=== PATIENT | male | born 1975 | race Caucasian/White ===

== ENCOUNTER 2017-03-03 18:09 | Inpatient (IN) | payer OTHER ==
[~2017-03-03] VITALS: Ht 182.9 cm; Wt 118.9 kg
[~2017-03-03 18:09] MED LIST: BACTRIM,SEPT1 TABLET PO; COLACE100 MG PO; IBUPROFEN200 M1 PO; LMX 430 GM TP; PERCOCET 5/31 TABLET PO
[2017-03-03 19:06] LABS: HEMATOCRIT 44.1 % (38.0-50.0); MCH 32.8 PG (29.0-34.0); MCHC 34.2 G/DL (30.0-36.0); MCV 95.7 FL (86-99); RBC DIS.WIDTH-CV 11.7 % (11.8-14.6); RBC DIS.WIDTH-SD 41.1 % (39-53); RED BLOOD COUNT 4.61 M/uL (4.00-5.50); WHITE BLOOD COUNT 9.2 K/uL (4.1-10.2)
[2017-03-03 19:11] LABS: ADD MIUA? NO; BILIRUBIN NEGATIVE; BLOOD NEGATIVE; COLOR COLORLESS ((YELLOW)); GLUCOSE (STRIP) NEGATIVE; KETONES NEGATIVE; LEUKOCYTES NEGATIVE; NITRITE NEGATIVE; PROTEIN (STRIP) NEGATIVE; SPECIFIC GRAVITY 1.002 (1.000-1.030); UCUL ADDED? NO; UROBILINOGEN 0.2 MG/DL (0.2-1.0)
[2017-03-03 19:16] LABS: CHLORIDE 104 mEq/L (99-109); POTASSIUM 4.2 mEq/L (3.7-5.4); SODIUM 138 mEq/L (136-147)
[2017-03-03 19:18] LABS: GLUCOSE 93 mg/dL (70-99)
[2017-03-03 19:20] LABS: ANION GAP 7 MEQ/L (2-14); TOTAL BILIRUBIN 0.4 mg/dL (0.0-1.0)
[2017-03-03 19:22] LABS: ALKALINE PHOSPHATASE 47 IU/L (3-129); GFR ESTIMATE (CALCULATED) > 59 mL/min/
[2017-03-03 19:23] LABS: UREA NITROGEN (BUN) 8 mg/dL (9-23)
[2017-03-03 19:45] LABS: MEAN PLAT.VOLUME 11.7 uM^3 (9.0-12.4); PLAT.SUFFICIENCY ADEQUATE; PLATELET COUNT 235 K/uL (156-360)
[2017-03-03] MEDS ORDERED: VITAMIN B-12500 MC5 SL (21:06)
[2017-03-03] MEDS ORDERED: ONCE DAILY1 EACH PO (21:06)
[2017-03-03] MEDS ORDERED: MILK THISTLE500 MG PO (21:07)
[2017-03-03] MEDS ORDERED: FISH OIL 1,0001 EAC7 PO (21:07)
[2017-03-04 03:45] VITALS: BP 117/70
[2017-03-04 08:19] VITALS: BP 125/63
[2017-03-04 10:20] LABS: HEMATOCRIT 41.7 % (38.0-50.0); MCH 31.9 PG (29.0-34.0); MCHC 32.9 G/DL (30.0-36.0); RBC DIS.WIDTH-CV 11.9 % (11.8-14.6); RBC DIS.WIDTH-SD 42.8 % (39-53); WHITE BLOOD COUNT 6.5 K/uL (4.1-10.2)
[2017-03-04 10:47] LABS: MEAN PLAT.VOLUME 12.1 uM^3 (9.0-12.4); PLAT.SUFFICIENCY ADEQUATE; PLATELET COUNT 205 K/uL (156-360)
[2017-03-04 15:23] VITALS: BP 132/76
[2017-03-04 19:15] VITALS: BP 119/81
[2017-03-04 22:50] VITALS: BP 132/75
[2017-03-05 03:57] VITALS: BP 120/68
[2017-03-05 05:48] LABS: HEMATOCRIT 40.7 % (38.0-50.0); MCH 32.7 PG (29.0-34.0); MCHC 33.2 G/DL (30.0-36.0); MCV 98.5 FL (86-99); MEAN PLAT.VOLUME 11.8 uM^3 (9.0-12.4); PLATELET COUNT 189 K/uL (156-360); RBC DIS.WIDTH-CV 11.9 % (11.8-14.6); RBC DIS.WIDTH-SD 43.4 % (39-53); RED BLOOD COUNT 4.13 M/uL (4.00-5.50); WHITE BLOOD COUNT 5.7 K/uL (4.1-10.2)
[2017-03-05 07:15] VITALS: BP 138/74
[2017-03-05 17:43] VITALS: BP 119/78
[2017-03-05 19:13] VITALS: BP 132/79
[2017-03-05 23:19] VITALS: BP 126/76
[2017-03-06 03:45] VITALS: BP 130/64
[2017-03-06 07:00] VITALS: BP 127/63
[2017-03-06 07:10] VITALS: BP 111/55
[2017-03-06] MEDS ORDERED: SEPTRA DS TABL1 EACH PO (08:55)
[2017-03-06] MEDS ORDERED: FLAGYL500 MG PO (08:55)
[2017-03-06] MEDS ORDERED: PERCOCET 5/31 TABLET PO (10:38)
[2017-03-06 11:40] VITALS: BP 123/68; BP 127/78
== END 2017-03-06 13:23 | disposition home or self-care (01) | DRG 392 ==
LOC: EME 18:09 → EDOF 20:47 → 5EAST 20:47 → ENRESERV 20:48 → 5EAST 20:54 → EDOF 20:57 → ENRESERV 20:57 → CANRESERV 21:46 → ENRESERV 22:29 → 5EAST 23:13 → ENPENDDIS 03-06 → 5EAST 03-06 13:23
PROVIDERS: Surgery
DX: K57.20 Diverticulitis of large intestine with perforation and abscess without bleeding (principal); F10.11 Alcohol abuse, in remission; E27.8 Other specified disorders of adrenal gland; Z87.891 Personal history of nicotine dependence
CPT/HCPCS: 74177; 80053; 81003; 85027; 94799; 99281; 99285; J1170; J1650; J2270; J2405; J2543; J3010; J7030; J7050

== ENCOUNTER → 2017-06-18 | Outpatient (CLI) | payer OTHER ==
[~2017-06-18] VITALS: Ht 182.9 cm; Wt 106.6 kg
[~2017-06-18] MED LIST changes: +FISH OIL 1,0001 EAC7 PO; +FLAGYL500 MG PO; +MEN'S MULTI-VI1 EACH PO; +MILK THISTLE500 MG PO; +PROBIOTIC1 EAC7 PO; +SEPTRA DS TABL1 EACH PO; +VITAMIN B-12500 MC5 SL
== END | disposition home or self-care (01) ==
LOC: AMB 05-20 08:00
PROC: 0DJD8ZZ Inspection of Lower Intestinal Tract, Via Natural or Artificial Opening Endoscopic (ICD-10-PCS; principal; 2017-06-18)
DX: K57.30 Diverticulosis of large intestine without perforation or abscess without bleeding (principal); Z53.09 Procedure and treatment not carried out because of other contraindication; K21.9 Gastro-esophageal reflux disease without esophagitis; F10.20 Alcohol dependence, uncomplicated; F41.9 Anxiety disorder, unspecified; Z86.19 Personal history of other infectious and parasitic diseases; Z83.3 Family history of diabetes mellitus; Z80.1 Family history of malignant neoplasm of trachea, bronchus and lung; F17.200 Nicotine dependence, unspecified, uncomplicated
CPT/HCPCS: J2250; J3010